=== PATIENT | male | born 1985 | race African-American/Black ===

== ENCOUNTER 2018-01-01 03:41 | Emergency (ER) | payer OTHER ==
[~2018-01-01] VITALS: Ht 190.5 cm; Wt 90.7 kg
[2018-01-01] MEDS ORDERED: NOHOMEMEDICATIONS (03:58)
[2018-01-01] MEDS ORDERED: HYDROCODON-ACE1 EAC7 PO (05:48)
[2018-01-01] MEDS ORDERED: KEFLEX500 M1 PO (05:48)
[2018-01-01 06:12] VITALS: BP 112/71
== END 2018-01-01 06:13 | disposition home or self-care (01) ==
LOC: M.ERS 03:41
DX: S61.213A Laceration without foreign body of left middle finger without damage to nail, initial encounter (principal); F17.210 Nicotine dependence, cigarettes, uncomplicated; W26.8XXA Contact with other sharp object(s), not elsewhere classified, initial encounter; Y92.89 Other specified places as the place of occurrence of the external cause; Y93.89 Activity, other specified; Y99.8 Other external cause status